=== PATIENT | female | born 1970 | race Two or more races ===

== ENCOUNTER → 2016-08-03 | Outpatient (CLI) | payer BC ==
--- NOTE | 2016-08-03 17:23 | DX ---
Chest, PA and Lateral History: Left anterior chest pain, history of breast cancer in 2009, R07.89 Findings: Density from bilateral breast implants overlie each lower lung. In addition, the patient is obese. On the lateral view a prominent ovoid density is present in the low retrosternal lung and ove rlies the anterior heart. Heart size is normal. There is no adenopathy or pleural effusion. Bones are unremarkable. Impression: Ovoid density overlying the anterior hard could be in the lingula or right middle lobe. I f there are any old outside chest x-rays, we would be happy to review them to assess for interval luke nge. If not consider chest CTA for further evaluation, particularly if there is concern for pulmonary embolic disease. Results called to [facility] at 5:21 PM
== END ==
LOC: BRMIMAGING 13:44
PROVIDERS: ATTEND Physician Assistant
DX: R07.89 Other chest pain (principal); R91.8 Other nonspecific abnormal finding of lung field
CPT/HCPCS: 71020-PO